=== PATIENT | female | born 1955 | race Caucasian/White ===

== ENCOUNTER 2023-03-05 21:59 | Emergency (ER) | payer MEDICARE ==
[2023-03-05] MEDS ORDERED: HYDROmorphone 0.5 MG/0.5 ML Syringe IM ONE (23:40)
[2023-03-05] MEDS ORDERED: Lidocaine 1% 5 ML VIAL INJECT ONE (23:40)
[2023-03-06] MEDS ORDERED: Bacitracin Oint 1 GM U/D Packet TOP ONE (01:04)
== END 2023-03-06 01:38 | disposition home or self-care (01) ==
LOC: JP.ED 21:59
DX: S51.811A Laceration without foreign body of right forearm, initial encounter (principal); S20.211A Contusion of right front wall of thorax, initial encounter; S79.921A Unspecified injury of right thigh, initial encounter; S49.91XA Unspecified injury of right shoulder and upper arm, initial encounter; I10 Essential (primary) hypertension; Z79.899 Other long term (current) drug therapy; W18.30XA Fall on same level, unspecified, initial encounter; Y93.89 Activity, other specified
CPT/HCPCS: 12002; 71101; 73060; 73090; 73552; 96372; 99284; J1170